=== PATIENT | female | born 1950 | race African-American/Black ===

== ENCOUNTER → 2016-11-08 | Outpatient (CLI) | payer MEDICARE, OTHER ==
[~2016-11-08] MED LIST: ATORVASTATIN CA80 MG ORAL; BACLOFEN10 MG ORAL; BENAZEPRIL HCL10 MG ORAL; CIPROFLOXACIN500 M2 ORAL; CYCLOBENZAPRINE10 MG ORAL; DEXILANT30 MG ORAL; IBUPROFEN600 MG ORAL; METFORMIN HCL850 M1 ORAL; NORCO 5-325 TA1 EACH ORAL; ROBITUSSIN COU118 M4 PO; VALIUM5 MG ORAL
--- NOTE | 2016-11-13 16:00 | GI Initial Consult Note ---
Katie Hebert N.P. 11/13/16 1600: History of Present Illness General Date patient seen: Nov 08, 2016 Time patient seen: 13:15 Referring physician: SUSAN Reason for Consultation: ABDOMINAL PAIN Present Illness HPI 66 year old female patient referred to [facility] by Dr. Doshi for evaluation of abdominal pain. Per the patient, she has been having episodes of painful swallowing and discomfort in the pit of her stomach. In addition, she c/o of abdominal bloating and black stools. Denies any use of pepto bismo or iron supplementation. States her last colonoscopy was approximately 2 years ago with colonic polyps. PCP Yoon Sherwood #[id number] Home Meds Active Scripts Guaifenesin/Dextromethorphan (Robitussin Cough-Chest Dm Liq) 118 Ml Liquid, 10 ML PO Q4HR, #118 ML Prov:TERZIAN,TOMÁS P.A. 04/08/16 Ciprofloxacin Hcl* (CIPROFLOXACIN HCL*) 500 Mg Tablet, 500 MG ORAL EVERY 12 HOURS, #20 TAB 0 Refills Prov:TERZIAN,TOMÁS P.A. 04/08/16 Ibuprofen* (MOTRIN*) 600 Mg Tablet, 600 MG ORAL Q8H Y for For Pain, #30 TAB 0 Refills Prov:DOMI PATHAK M.D. 03/06/15 Diazepam* (VALIUM*) 5 Mg Tablet, 5 MG ORAL TID Y for Muscle Spasm, #15 TAB 0 Refills Prov:DOMI PATHAK M.D. 03/06/15 Cyclobenzaprine Hcl* (FLEXERIL*) 10 Mg Tablet, 10 MG ORAL TID Y for Muscle Spasm , #20 TAB Prov:MIKA JOHNSON P.A. 07/31/14 Hydrocodone Bit/Acetaminophen 5-325* (NORCO 5-325*) 1 Each Tablet, 1 TAB ORAL Q6H Y for For Pain, #10 TAB Prov:MIKA JOHNSON P.A. 07/31/14 Reported Medications Ibuprofen* (MOTRIN*) 600 Mg Tablet, 600 MG ORAL Q8H Y, #30 TAB 0 Refills 11/13/16 Diazepam* (VALIUM*) 5 Mg Tablet, 5 MG ORAL TID Y, #30 TAB 0 Refills 11/13/16 Cyclobenzaprine Hcl* (FLEXERIL*) 10 Mg Tablet, 10 MG ORAL THREE TIMES A DAY, TAB 11/13/16 Med list reviewed/reconciled: Yes Allergies: Coded Allergies: DIPHENHYDRAMINE (Unverified Allergy, Severe, 11/13/16) JAW SWELLING Patient History History Provided By: Patient, Medical Record PMH Narrative HTN DM HLD GERD Colonic Polyps PSHx spine surgery ~ 2006 Pertinent Family History: none Social History: Reports: alcohol use - social, smoking - quit 11 years Review of Systems All Other Systems: negative except mentioned in HPI Physical Exam T 97.8 BP 118/66 P 84 97 RA HT 5 5 WT 223 Sp02 EP Interpretation: reviewed General Appearance: well appearing, no apparent distress, alert, obese EENT: normal ENT inspection Neck: supple Respiratory: normal breath sounds, no respiratory distress Cardiovascular: normal rate Gastrointestinal: normal inspection, non tender, soft Genitourinary: no CVA tenderness Musculoskeletal: back normal Neurologic: normal inspection, alert, oriented x3, responsive Psychiatric: normal inspection, judgement/insight normal, memory normal Skin: normal inspection, normal color, no rash, warm/dry Lymphatic: normal inspection, no adenopathy GI: Plan Problems: (1) Encounter for diagnostic endoscopy (2) GERD (gastroesophageal reflux disease) (3) Colonic polyp (4) Abdominal pain (5) Black stool Plan LATE ENTRY EGD scheduled for November 15, 2006. - NPO @ [place] prior day of procedure given and acknowledged rx dexilant rx baclofen Seen with Dr. Wilson. Thank you for referring this patient. BRANDIE WILSON 11/14/16 1243: History of Present Illness Present Illness Home Meds Active Scripts Guaifenesin/Dextromethorphan (Robitussin Cough-Chest Dm Liq) 118 Ml Liquid, 10 ML PO Q4HR, #118 ML Prov:TERZIAN,TOMÁS P.A. 04/08/16 Ciprofloxacin Hcl* (CIPROFLOXACIN HCL*) 500 Mg Tablet, 500 MG ORAL EVERY 12 HOURS, #20 TAB 0 Refills Prov:TERZIAN,TOMÁS P.A. 04/08/16 Ibuprofen* (MOTRIN*) 600 Mg Tablet, 600 MG ORAL Q8H Y for For Pain, #30 TAB 0 Refills Prov:DOMI PATHAK M.D. 03/06/15 Diazepam* (VALIUM*) 5 Mg Tablet, 5 MG ORAL TID Y for Muscle Spasm, #15 TAB 0 Refills Prov:DOMI PATHAK M.D. 03/06/15 Cyclobenzaprine Hcl* (FLEXERIL*) 10 Mg Tablet, 10 MG ORAL TID Y for Muscle Spasm , #20 TAB Prov:MIKA JOHNSON P.A. 07/31/14 Hydrocodone Bit/Acetaminophen 5-325* (NORCO 5-325*) 1 Each Tablet, 1 TAB ORAL Q6H Y for For Pain, #10 TAB Prov:MIKA JOHNSON P.A. 07/31/14 Reported Medications Ibuprofen* (MOTRIN*) 600 Mg Tablet, 600 MG ORAL Q8H Y, #30 TAB 0 Refills 11/13/16 Diazepam* (VALIUM*) 5 Mg Tablet, 5 MG ORAL TID Y, #30 TAB 0 Refills 11/13/16 Cyclobenzaprine Hcl* (FLEXERIL*) 10 Mg Tablet, 10 MG ORAL THREE TIMES A DAY, TAB 11/13/16 Allergies: Coded Allergies: DIPHENHYDRAMINE (Unverified Allergy, Severe, 11/13/16) JAW SWELLING GI: Plan Plan The patient was seen and examined at bedside and all new and available data was reviewed in the patients chart. I agree with the above findings, impression and plan. (Patient seen earlier today. Signature stamp does not reflect patient encounter time.). -Fernanda Bhatia MDh Edilberto Null Nov 13, 2016 16:00 BRANDIE WILSON Nov 14, 2016 12:43
== END | disposition home or self-care (01) ==
LOC: PAN 13:11
DX: K21.9 Gastro-esophageal reflux disease without esophagitis (principal); K63.5 Polyp of colon; R10.9 Unspecified abdominal pain; K92.1 Melena; E11.9 Type 2 diabetes mellitus without complications; I10 Essential (primary) hypertension; Z88.8 Allergy status to other drugs, medicaments and biological substances
CPT/HCPCS: 99201

== ENCOUNTER → 2016-11-20 | Day surgery (SDC) | payer MEDICARE, OTHER ==
[2016-11-20] VITALS (8 sets, daily range): BP systolic 103–145; BP diastolic 63–80
[~2016-11-20] VITALS: Ht 162.6 cm; Wt 97.5 kg
[~2016-11-20] MED LIST changes: +LR 1000ml 1,000 ML IVLG SCH; +LR 1000ml ONE; +Labetalol 5mg/ml 20ml vial IV PRN; +Lidocaine 1% MPF 10mg/ml 5ml ONE; +Propofol 10mg/ml 20ml IV ONE
--- NOTE | 2016-11-20 07:00 | Anethesia Preoperative Eval ---
Anesthesia Pre-op PMH/ROS General Date of Evaluation: Nov 20, 2016 Anesthesiologist: Jamarcus ASA Score: ASA 2 Mallampati Score Class I : Soft palate, uvula, fauces, pillars visible Class II: Soft palate, uvula, fauces visible Class III: Soft palate, base of uvula visible Class IV: Only hard plate visible Mallampati Classification: Class II Surgeon: Rupa Diagnosis: GERD Surgical Procedure: EGD Anesthesia History: none Family History: no anesthesia problems Allergies: Coded Allergies: DIPHENHYDRAMINE (Unverified Allergy, Severe, 11/13/16) JAW SWELLING Medications: see eMAR Past Medical History Cardiovascular: Reports: HTN, other - HLD, Denies: CAD, CT, arrhythmia, valve dz Pulmonary: Denies: COPD, MARY ANNE, asthma, other Gastrointestinal/Genitourinary: Reports: GERD, Denies: CRI, ESRD, other Neurologic/Psychiatric: Denies: CVA, TIA, dementia, depression/anxiety, other Endocrine: Reports: DM, Denies: hypothyroidism, other, steroids HEENT: Denies: [place] (L), [place] (R), cataract (L), cataract (R), glaucoma, other Hematology/Immune: Denies: DVT, anemia, bleeding disorder, other Musculoskeletal/Integumentary: Denies: DDD, DJD, OA, RA, edema, other Other: obesity PSxH Narrative: cervical sx Anesthesia Pre-op Phys. Exam Physician Exam see chart Constitutional: NAD Cardiovascular: RRR Respiratory: CTA Airway Exam Mallampati Score: Class II Anesthesia Pre-op A/P Labs see chart Studies Pre-op Studies: EKG - sr Risk Assessment & Plan Assessment: ASA II Plan: MAC Status Change Before Surgery: No Pre-Antibiotics Drug: N/A FAREED MESSER M.D. Nov 20, 2016 07:00
--- NOTE | 2016-11-20 07:01 | Immediate Post-Op Evaluation ---
Immediate Post-Op Evalulation Immediate Post-Op Evalulation Procedure: EGD Date of Evaluation: Nov 20, 2016 Time of Evaluation: 09:34 IV Fluids: 300 Blood Products: 0 Estimated Blood Loss: 0 Urinary Output: 0 Blood Pressure Systolic: 103 Blood Pressure Diastolic: 65 Pulse Rate: 71 Respiratory Rate: 17 O2 Sat by Pulse Oximetry: 100 Temperature (Fahrenheit): 96.9 Pain Score (1-10): 0 Nausea: No Vomiting: No Complications 0 Patient Status: awake, reacts, patent, none Hydration Status: adequate Drug: N/A FAREED MESSER M.D. Nov 20, 2016 07:01
--- NOTE | 2016-11-20 07:02 | 48 Hour Post Anesthesia Eval ---
Post Anesthesia Evaluation Procedure: EGD Date of Evaluation: Nov 20, 2016 Blood Pressure Systolic: 100 0: 68 Pulse Rate: 69 Respiratory Rate: 17 O2 Sat by Pulse Oximetry: 100 Airway: patent Nausea: No Vomiting: No Pain Intensity: 0 Hydration Status: adequate Cardiopulmonary Status: at baseline Mental Status/LOC: patient returned to baseline Post-Anesthesia Complications: 0 Follow-up care needed: ready to discharge FAREED MESSER M.D. Nov 20, 2016 07:02
--- NOTE | 2016-11-20 09:11 | Pre-Procedure Note/Attestation ---
Pre-Procedure Note/Attestation Complete Prior to Procedure Planned Procedure: not applicable Procedure Narrative: egd Indications for Procedure Pre-Operative Diagnosis: GERD Attestation I attest that I discussed the nature of the procedure; its benefits; risks and complications; and alternatives (and the risks and benefits of such alternatives ), prior to the procedure, with the patient (or the patient's legal enrollment eligibility representative). I attest that, if there was a reasonable possibility of needing a blood transfusion, the patient (or the patient's legal enrollment eligibility representative) was given the [facility] standardized written summary, pursuant to the Lemuel [place] Blood Safety Act ([place] Health and Safety Code # 1645, as amended). I attest that I re-evaluated the patient just prior to the surgery and that there has been no change in the patient's H&P, except as documented below: BRANDIE WILSON Nov 20, 2016 09:11
--- NOTE | 2016-11-20 09:13 | Short Stay Surgery H&P ---
History of Present Illness History of Present Illness Chief Complaint gerd HPI Francine Duenas is a 66 year old female who was admitted on for Abdominal Pain Patient History Allergies: Coded Allergies: DIPHENHYDRAMINE (Unverified Allergy, Severe, 11/13/16) JAW SWELLING PAST MEDICAL HISTORY: (1) Black stool (2) Abdominal pain (3) GERD (gastroesophageal reflux disease) (4) Colonic polyp Past Surgeries: Social History: Medication History Scheduled Atorvastatin Calcium* (Lipitor*), MG ORAL BEDTIME, (Reported) Benazepril Hcl* (Benazepril Hcl*), 10 MG ORAL DAILY, (Reported) Metformin Hcl* (Metformin Hcl*), 850 MG ORAL DAILY, (Reported) Scheduled PRN Cyclobenzaprine Hcl* (Flexeril*), 10 MG ORAL TID PRN for Muscle Spasm Diazepam* (Valium*), 5 MG ORAL TID PRN for Muscle Spasm Discontinued Medications Ciprofloxacin Hcl* (Ciprofloxacin Hcl*), 500 MG ORAL EVERY 12 HOURS Discontinued Reason: Therapy completed Guaifenesin/Dextromethorphan (Robitussin Cough-Chest Dm Liq), 10 ML PO Q4HR Discontinued Reason: Therapy completed Hydrocodone Bit/Acetaminophen 5-325* ([place] 5-325*), 1 TAB ORAL Q6H PRN for For Pain Discontinued Reason: Pt stopped taking med Ibuprofen* (Motrin*), 600 MG ORAL Q8H PRN for For Pain Discontinued Reason: Pt stopped taking med Review of Systems Cardiovascular: Reports: no symptoms Skeletal: Reports: no symptoms Gastrointestinal: Reports: gastro esophageal reflux disease Genitourinary: Reports: no symptoms Neurologic: Reports: no symptoms Endocrine: Reports: no symptoms Hematologic: Reports: no symptoms Physical Exam Vital Signs Last Vital Signs Date Time Temp Pulse Resp B/P Pulse Ox O2 Delivery O2 Flow Rate FiO2 11/20/16 07:17 97.6 72 18 145/80 96 Room Air Skin: normal HENT: normal Heart: normal Lungs: normal Abdomen: normal Extremities: normal Plan Plan of Care EGD Final Diagnosis: Attestation Are the patient's medical conditions optimized for surgery? Attestation Response: yes BRANDIE WILSON Nov 20, 2016 09:13
--- NOTE | 2016-11-20 09:25 | Endoscopy Procedure Note ---
Endoscopy Procedure Note Indication for Procedure: gerd Procedures Performed: EGD Operative Findings/Diagnosis: gastritis Specimen: yes Pt Tolerated Procedure Well: Yes Estimated Blood Loss: none Anesthesiologist: maria esther Anesthesia: MAC Implant(s) used?: No 50 yrs or older w/o bx or poly: Not Applicable 10yrs. F/U not recommended: Not Applicable BRANDIE WILSON Nov 20, 2016 09:25
--- NOTE | 2016-11-20 19:58 | Procedure Note ---
DATE OF PROCEDURE: 11/20/2016 SURGEON: Julio Goode M.D. PROCEDURE: Upper endoscopy with biopsy. ANESTHESIOLOGIST: Dr. Mcgowan. INSTRUMENT: Olympus adult flexible upper endoscope. INDICATION: Dysphagia and GERD. REASON FOR PROCEDURE: The procedure, risks, benefits, and possible consequences, including hemorrhage, aspiration, perforation and infection, and alternative treatments, were explained to the patient/legal guardian by Dr. Julio Goode and the patient/legal guardian understood and accepted these risks. DESCRIPTION OF PROCEDURE: After informed consent was obtained and the patient was adequately sedated, Olympus upper endoscope was advanced from mouth into the second portion of duodenum and retroflexion was performed in the stomach. The patient had mild gastritis. Random biopsy from antrum of the stomach was obtained to rule out H. pylori infection. Otherwise, the rest of the upper endoscopic examination was grossly within normal limits. The patient tolerated the procedure very well without any complication. SUMMARY OF FINDINGS: Gastritis, otherwise normal upper endoscopic examination. RECOMMENDATIONS: Followup biopsies and treat accordingly. Julio Goode M.D. DR: FAVIAN JOB#: [id number] CC:
--- NOTE | 2016-11-21 11:25 | Cardiology Report ---
APPROVED REPORT EKG Measurement Heart [id number] Sinus rhythm with sinus arrhythmia with frequent premature ventricular complexes Nonspecific T wave abnormality Prolonged QT Abnormal ECG
== END | disposition home or self-care (01) ==
LOC: GAS 06:44
DX: R13.10 Dysphagia, unspecified (principal); K21.9 Gastro-esophageal reflux disease without esophagitis; K29.50 Unspecified chronic gastritis without bleeding; I10 Essential (primary) hypertension; E11.9 Type 2 diabetes mellitus without complications; Z79.84 Long term (current) use of oral hypoglycemic drugs; E78.5 Hyperlipidemia, unspecified; E66.9 Obesity, unspecified; Z86.010 Personal history of colon polyps; Z88.8 Allergy status to other drugs, medicaments and biological substances
CPT/HCPCS: 43239; 82962; 93005; J2704; J7120; 94003; 94150

== ENCOUNTER → 2016-12-04 | Outpatient (CLI) | payer MEDICARE, OTHER ==
[~2016-12-04] MED LIST changes: -LR 1000ml 1,000 ML IVLG SCH; -LR 1000ml ONE; -Labetalol 5mg/ml 20ml vial IV PRN; -Lidocaine 1% MPF 10mg/ml 5ml ONE; -Propofol 10mg/ml 20ml IV ONE
--- NOTE | 2016-12-04 14:48 | GI Progress Note ---
Assessment/Plan Problems: (1) Abdominal pain ICD Codes: R10.9 - Unspecified abdominal pain SNOMED: 35264981 (2) GERD (gastroesophageal reflux disease) ICD Codes: K21.9 - Gastro-esophageal reflux disease without esophagitis SNOMED: 386381603 Status: stable Status Narrative Discussed with Dr. Goode. Assessment/Plan EGD reviewed. fu biopsy >> unremarkable cont dexilant cont baclofen hx of colonic polyps obtain colonoscopy records from Dr. Yoon Gutierrez RTC x 1 month/prn, patient will contact. Subjective Gastrointestinal/Abdominal: Reports: no symptoms Objective T 98.1 BP 157/82 P 76 100 RA General Appearance: no apparent distress, alert, obese Cardiovascular: normal rate Respiratory/Chest: normal breath sounds, no respiratory distress Abdominal Exam: normal bowel sounds, non tender, soft Extremities: normal range of motion Objective s/p EGD 11/20/16- SUMMARY OF FINDINGS: Gastritis, otherwise normal upper endoscopic examination. RECOMMENDATIONS: Followup biopsies and treat accordingly. Katie Hebert N.P. Dec 04, 2016 14:48
== END | disposition home or self-care (01) ==
LOC: PAN 13:29
DX: R10.9 Unspecified abdominal pain (principal); K21.9 Gastro-esophageal reflux disease without esophagitis; K29.70 Gastritis, unspecified, without bleeding
CPT/HCPCS: 99211

== ENCOUNTER 2017-01-15 12:50 | Outpatient (CLI) | payer MEDICARE, OTHER ==
[2017-01-15 13:00] VITALS: BP 122/68
--- NOTE | 2017-01-15 13:48 | GI Progress Note ---
Assessment/Plan Problems: (1) Colonoscopy planned SNOMED: 470216548 (2) Dysphagia ICD Codes: R13.10 - Dysphagia, unspecified SNOMED: 25776202, 973595470 (3) Post-nasal drainage ICD Codes: R09.82 - Postnasal drip SNOMED: 52102542 (4) Abdominal pain ICD Codes: R10.9 - Unspecified abdominal pain SNOMED: 30789232 (5) GERD (gastroesophageal reflux disease) ICD Codes: K21.9 - Gastro-esophageal reflux disease without esophagitis SNOMED: 835698584 (6) Colonic polyp ICD Codes: K63.5 - Polyp of colon SNOMED: 30010752 Status: unchanged Status Narrative Seen with Dr. Goode. Assessment/Plan EGD reviewed 11/20/16 >> gastritis fu biopsy >> unremarkable hx of colonic polyps >> patient will contact us to schedule colonoscopy s/p videoswallow study at [facility] in 2010 pt had stopped dexilant and baclofen rx Nasonex rx Claritin obtain colonoscopy records from Dr. Yoon Gutierrez >> had only upper endoscopy records performed in 2012 which were unremarkable >> will obtain colonoscopy records now from [facility] RT x 1 month/prn, patient will contact office. Subjective Subjective GERD, feels like she can't swallow and something is in her esophagus stopped taking dexilant and baclofen for this reason c/o of hunger and increase appetite x 1 year states she is due for a colonoscopy Objective T 98.2 BP 122/68 P 72 98 RA denies any weight loss General Appearance: no apparent distress, alert, overweight Cardiovascular: normal rate Respiratory/Chest: normal breath sounds, no respiratory distress Abdominal Exam: normal bowel sounds, non tender, soft Extremities: normal range of motion Objective Endoscopy Procedure Note Indication for Procedure: gerd Procedures Performed: EGD Operative Findings/Diagnosis: gastritis BRANDIE GOODE - Nov 20, 2016 09:25 Katie Hebert NTc January 15, 2017 13:47
== END 2017-01-15 13:40 | disposition home or self-care (01) ==
LOC: PAN 12:50
DX: K21.9 Gastro-esophageal reflux disease without esophagitis (principal); R13.10 Dysphagia, unspecified; R09.82 Postnasal drip; R10.9 Unspecified abdominal pain; K63.5 Polyp of colon
CPT/HCPCS: 99211

== ENCOUNTER 2017-01-31 08:39 | Outpatient (CLI) | payer MEDICARE, OTHER ==
--- NOTE | 2017-01-31 10:59 | Diagnostic Imaging Report ---
Indication: DYSPHAGIA Technique: Patient ingested impression granules, oral thick and thin liquid barium, and rapid sequence spot films and overhead images were obtained Total fluoroscopy time 2.2 minutes. Total dose area product 618 dGycm2 Comparison: None Findings: There is mild distal esophageal dysmotility no strictures, ulcerations, or filling defects are demonstrated. No gastroesophageal reflux observed fluoroscopically. No evidence of aspiration or penetration. Incidentally noted is cervical fusion hardware Impression: Mild distal esophageal dysmotility, likely age-related Negative for stricture or filling defect
== END 2017-01-31 10:09 | disposition home or self-care (01) ==
LOC: RAD 08:39
DX: R13.10 Dysphagia, unspecified (principal)
CPT/HCPCS: 74220

== ENCOUNTER 2017-02-28 06:58 | Day surgery (SDC) | payer MEDICARE ==
[~2017-02-28] VITALS: Ht 163.8 cm; Wt 97.5 kg
[2017-02-28] VITALS (9 sets, daily range): BP systolic 136–156; BP diastolic 71–85
--- NOTE | 2017-02-28 06:36 | Anethesia Preoperative Eval ---
Anesthesia Pre-op PMH/ROS General Date of Evaluation: Feb 28, 2017 Time of Evaluation: 06:35 Anesthesiologist: miranda ASA Score: ASA 2 Mallampati Score Class I : Soft palate, uvula, fauces, pillars visible Class II: Soft palate, uvula, fauces visible Class III: Soft palate, base of uvula visible Class IV: Only hard plate visible Mallampati Classification: Class II Surgeon: percy Diagnosis: colon screening Surgical Procedure: colonoscopy Anesthesia History: none Family History: no anesthesia problems Allergies: Coded Allergies: DIPHENHYDRAMINE (Unverified Allergy, Severe, 11/13/16) JAW SWELLING Medications: see eMAR Past Medical History Cardiovascular: Reports: HTN, other - hypercholsterolemia Gastrointestinal/Genitourinary: Reports: GERD Neurologic/Psychiatric: Reports: depression/anxiety, other - decrased hearing acuity Endocrine: Reports: DM PSxH Narrative: eye surgery Anesthesia Pre-op Phys. Exam Physician Exam Last Vital Signs Date Time Temp Pulse Resp B/P Pulse Ox O2 Delivery O2 Flow Rate FiO2 02/28/17 07:34 97.5 80 20 156/84 97 Room Air Constitutional: NAD Neurologic: CN 2-12 intact Cardiovascular: RRR Respiratory: CTA Gastrointestinal: S/NT/ND Airway Exam Mallampati Score: Class II MO: full Neck: supple TMD: 2fb ROM: full Dentures: upper, no lower Anesthesia Pre-op A/P Risk Assessment & Plan Assessment: colon screening Plan: colonoscopy Status Change Before Surgery: No Pre-Antibiotics Drug: ABDIEL Adames Feb 28, 2017 06:36
--- NOTE | 2017-02-28 09:19 | Short Stay Surgery H&P ---
History of Present Illness History of Present Illness Chief Complaint see recent consult note HPI Francine Duenas is a 66 year old female who was admitted on for Colon Screening Patient History Allergies: Coded Allergies: DIPHENHYDRAMINE (Unverified Allergy, Severe, 11/13/16) JAW SWELLING PAST MEDICAL HISTORY: Past Surgeries: Social History: Medication History Scheduled Atorvastatin Calcium* (Lipitor*), MG ORAL BEDTIME, (Reported) Benazepril Hcl* (Benazepril Hcl*), 10 MG ORAL DAILY, (Reported) Metformin Hcl* (Metformin Hcl*), 850 MG ORAL DAILY, (Reported) Scheduled PRN Cyclobenzaprine Hcl* (Flexeril*), 10 MG ORAL TID PRN for Muscle Spasm Diazepam* (Valium*), 5 MG ORAL TID PRN for Muscle Spasm Physical Exam Vital Signs Last Vital Signs Date Time Temp Pulse Resp B/P Pulse Ox O2 Delivery O2 Flow Rate FiO2 02/28/17 07:34 97.5 80 20 156/84 97 Room Air Plan Attestation Are the patient's medical conditions optimized for surgery? BRANDIE WILSON Feb 28, 2017 09:19
--- NOTE | 2017-02-28 09:19 | Pre-Procedure Note/Attestation ---
Pre-Procedure Note/Attestation Complete Prior to Procedure Planned Procedure: not applicable Procedure Narrative: colonoscopy Indications for Procedure Pre-Operative Diagnosis: screening Attestation I attest that I discussed the nature of the procedure; its benefits; risks and complications; and alternatives (and the risks and benefits of such alternatives ), prior to the procedure, with the patient (or the patient's legal manufacturers representative). I attest that, if there was a reasonable possibility of needing a blood transfusion, the patient (or the patient's legal manufacturers representative) was given the [facility] standardized written summary, pursuant to the Lemuel [place] Blood Safety Act ([place] Health and Safety Code # 1645, as amended). I attest that I re-evaluated the patient just prior to the surgery and that there has been no change in the patient's H&P, except as documented below: BRANDIE WILSON Feb 28, 2017 09:18
[2017-02-28] MEDS ORDERED: Lidocaine 1% MPF 10mg/ml 5ml ONE (09:30)
[2017-02-28] MEDS ORDERED: Propofol 10mg/ml 20ml IV ONE (09:30)
--- NOTE | 2017-02-28 09:54 | Endoscopy Procedure Note ---
Endoscopy Procedure Note Indication for Procedure: screening Procedures Performed: colonoscopy Operative Findings/Diagnosis: diverticulosis Specimen: none Pt Tolerated Procedure Well: Yes Estimated Blood Loss: none Anesthesiologist: adelina Anesthesia: MAC Implant(s) used?: No 50 yrs or older w/o bx or poly: Yes 10yrs. F/U not recommended: Yes If not recommended, why?: Above average risk 10 yrs. F/U needed: Yes 18 years or older w/prev. colo: Yes <3yrs. since last colonoscopy: No BRANDIE WILSON Feb 28, 2017 09:54
--- NOTE | 2017-02-28 14:00 | Procedure Note ---
DATE OF PROCEDURE: 02/28/2017 PROCEDURE: Colonoscopy. SURGEON: Julio Goode M.D. ANESTHESIA: Cassidy Euceda M.D. INSTRUMENT: Olympus adult flexible colonoscope. INDICATION: Screening colonoscopy evaluation. REASON FOR PROCEDURE: The procedure, risks, benefits, and possible consequences, including hemorrhage, aspiration, perforation and infection, and alternative treatments, were explained to the patient/legal guardian by Dr. Julio Goode and the patient/legal guardian understood and accepted these risks. PROCEDURE: After Informed consent was obtained and the patient was adequately sedated, a rectal examination was performed, which was normal. The scope was advanced into the rectum to the cecum identified by the appendiceal orifice, ileocecal valve and right upper quadrant palpation. Quality of prep was very good. The patient had no polyps colonoscopy examination. The patient had diverticulosis both in the right and left colon, but more predominantly seen prominent in the sigmoid colon. Retroflexion of rectum was performed, which showed no active hemorrhoids at this time. SUMMARY FINDINGS: Diverticulosis, otherwise normal colonoscopy examination. RECOMMENDATIONS: Repeat colonoscopy in 10 years. Julio Goode M.D. DR: RAE JOB#: [id number] CC:
--- NOTE | 2017-02-28 16:30 | Immediate Post-Op Evaluation ---
Immediate Post-Op Evalulation Immediate Post-Op Evalulation Procedure: colonoscopy Date of Evaluation: Feb 28, 2017 Time of Evaluation: 10:07 IV Fluids: 300ml 0.9ns Blood Products: none Estimated Blood Loss: negligible Blood Pressure Systolic: 140 Blood Pressure Diastolic: 89 Pulse Rate: 82 Respiratory Rate: 18 O2 Sat by Pulse Oximetry: 99 Temperature (Fahrenheit): 98.0 Pain Score (1-10): 0 Nausea: No Vomiting: No Complications none Patient Status: awake, reacts, patent Hydration Status: adequate Drug: ABDIEL Adames Feb 28, 2017 16:30
--- NOTE | 2017-02-28 16:32 | 48 Hour Post Anesthesia Eval ---
Post Anesthesia Evaluation Procedure: colonoscopy Date of Evaluation: Feb 28, 2017 Time of Evaluation: 16:32 Blood Pressure Systolic: 138 0: 85 Pulse Rate: 85 Respiratory Rate: 18 Temperature (Fahrenheit): 98.0 O2 Sat by Pulse Oximetry: 99 Airway: patent Nausea: No Vomiting: No Pain Intensity: 0 Hydration Status: adequate Cardiopulmonary Status: stable Mental Status/LOC: patient returned to baseline Post-Anesthesia Complications: none Follow-up care needed: N/A ABDIEL JARAMILLO Feb 28, 2017 16:32
--- NOTE | 2017-03-02 19:13 | Cardiology Report ---
APPROVED REPORT EKG Measurement Heart [id number] MT 170P71 [id number] [id number] Normal sinus rhythm Normal ECG
== END 2017-02-28 11:20 | disposition home or self-care (01) ==
LOC: GAS 06:58
DX: Z12.11 Encounter for screening for malignant neoplasm of colon (principal); K57.30 Diverticulosis of large intestine without perforation or abscess without bleeding; I10 Essential (primary) hypertension; E11.9 Type 2 diabetes mellitus without complications; Z79.84 Long term (current) use of oral hypoglycemic drugs; K21.9 Gastro-esophageal reflux disease without esophagitis; F32.9 Major depressive disorder, single episode, unspecified; F41.9 Anxiety disorder, unspecified
CPT/HCPCS: 82962; 93005; G0121; J2704; 94003; 94150

== ENCOUNTER 2017-03-13 08:48 | Outpatient (CLI) | payer MEDICARE ==
[2017-03-13 09:09] VITALS: BP 100/44
--- NOTE | 2017-03-13 09:26 | GI Progress Note ---
Assessment/Plan Problems: (1) Dysphagia ICD Codes: R13.10 - Dysphagia, unspecified SNOMED: 66251198, [id number] Status: stable, unchanged Status Narrative Seen with Dr. Goode. Assessment/Plan Esophageal Xray reviewed with patient >> unremarkable Patient education on possible Tardive dyskinesia. rx reglan 5 mg RTC x 1 month will consider esophageal manometry if no improvement Subjective Subjective here for xray review still feels liquids get "stuck" in her throat had cervical surgery 10 years ago Objective Last 24 Hour Vital Signs Date Time Temp Pulse Resp B/P Pulse Ox O2 Delivery O2 Flow Rate FiO2 03/13/17 09:09 97.7 87 16 100/44 100 General Appearance: no apparent distress, alert Cardiovascular: normal rate Respiratory/Chest: normal breath sounds, no respiratory distress Abdominal Exam: normal bowel sounds, non tender, soft Extremities: normal range of motion Objective Procedure: XRAY Esophagus 6v Indication: DYSPHAGIA Impression: Mild distal esophageal dysmotility, likely age-related Negative for stricture or filling defect Katie Hebert N.P. Mar 13, 2017 09:26
== END 2017-03-13 09:30 | disposition home or self-care (01) ==
LOC: PAN 08:48
DX: R13.10 Dysphagia, unspecified (principal)
CPT/HCPCS: 99211

== ENCOUNTER 2017-04-05 08:18 | Inpatient (IN) | payer MEDICARE, OTHER ==
[~2017-04-05] VITALS: Ht 162.6 cm; Wt 97.5 kg
[2017-04-05 09:17] VITALS: BP 149/72
[2017-04-05 09:23] LABS: APPEARANCE,URINE CLEAR; KETONES,URINE NEGATIVE (NEGATIVE); LEUKOCYTE ESTERASE ,URINE 1+ (NEGATIVE); NITRITE,URINE NEGATIVE (NEGATIVE); PH,URINE 6 (4.5-8.0); PROTEIN,URINE NEGATIVE (NEGATIVE); UROBILINOGEN,URINE NORMAL MG/DL (0.0-1.0)
[2017-04-05 09:26] LABS: BASOPHILS % (AUTO) 7.5 % (0.0-2.0); EOSINOPHILS % (AUTO) 1.9 % (0.0-3.0); LYMPHOCYTES % (AUTO) 30.4 % (20.0-45.0); MEAN CORPUSCULAR HEMOGLOBIN 28.1 PG (27.0-31.0); MEAN CORPUSCULAR HGB CONC 30.3 G/DL (32.0-36.0); MEAN CORPUSCULAR VOLUME 93 FL (80-99); MEAN PLATELET VOLUME 10.4 FL (6.5-10.1); MONOCYTES % (AUTO) 18.2 % (1.0-10.0); PLATELET COUNT 220 K/UL (150-450); RED BLOOD COUNT 4.43 M/UL (4.20-5.40); RED CELL DISTRIBUTION WIDTH 13.4 % (11.6-14.8); WHITE BLOOD COUNT 7.1 K/UL (4.8-10.8)
[2017-04-05 09:37] LABS: BACTERIA,URINE FEW /HPF; RBC,URINE 0-2 /HPF (0 - 2); SQUAMOUS EPITHELIAL CELL,UR FEW /LPF (NONE/OCC); WBC,URINE 0-2 /HPF (0 - 2)
[2017-04-05 09:38] LABS: ALANINE AMINOTRANSFERASE 12 U/L (3-33); ALBUMIN/GLOBULIN RATIO 0.9 (1.0-2.7); ANION GAP 13 (5-15); ASPARTATE AMINO TRANSFERASE 19 U/L (5-40); CALCIUM 9.3 mg/dL (8.6-10.2); CARBON DIOXIDE 24 mEQ/L (20-30); CHLORIDE 97 mEQ/L (98-107); CREATININE 0.8 mg/dL (0.5-0.9); GLOMERULAR FILTRATION RATE > 60 mL/min (>60); HEMOLYSIS 54; LIPASE 28 U/L (< 60); POTASSIUM 4.6 mEQ/L (3.4-4.9); SODIUM 134 mEQ/L (135-145); TOTAL PROTEIN 7.5 g/dL (6.6-8.7); TROPONIN I < 0.30 ng/mL (<=0.30)
[2017-04-05 09:49] LABS: CKMB < 1.5 ng/mL (< 3.8)
--- NOTE | 2017-04-05 09:54 | Diagnostic Imaging Report ---
Indication: Dyspnea Comparison: 09/28 13 A single view chest radiograph was obtained. Findings: Cardiomediastinal appearance is within normal limits for age. Pulmonary vascularity is appropriate. The diaphragmatic contour is smooth and costophrenic angles are sharp. No pleural effusions are identified. The bones are unremarkable. Cervical compression plate noted. Impression: No acute findings
--- NOTE | 2017-04-05 10:19 | Emergency Room Report ---
History of Present Illness General Chief Complaint: Pain Source: Patient Present Illness HPI 66-year-old female presents ED for evaluation per states for one day she's had chest tightness. Started rest. Midsternal. 2/10. Worse with deep breaths. Notes history of acid reflux but states this feels different. Notes history of hypertension and diabetes. Denies smoking or drug use. No other aggravating or relieving factors. Denies any other associated symptoms Allergies: Coded Allergies: DIPHENHYDRAMINE (Unverified Allergy, Severe, 11/13/16) JAW SWELLING Patient History Past Medical History: DM, HTN Past Surgical History: none Pertinent Family History: none Social History: Denies: alcohol use, drug use, smoking Now: No Immunizations: UTD Reviewed Nursing Documentation: PMH: Agreed, PSxH: Agreed Nursing Documentation-PMH Hx Cardiac Problems: Yes Hx Hypertension: Yes Hx Diabetes: Yes - type 2 Hx Cancer: No Hx Gastrointestinal Problems: Yes Hx Neurological Problems: No Review of Systems All Other Systems: negative except mentioned in HPI Physical Exam Vital Signs Date Time Temp Pulse Resp B/P Pulse Ox O2 Delivery O2 Flow Rate FiO2 04/05/17 08:29 98.2 82 18 143/82 99 Room Air Sp02 EP Interpretation: reviewed, normal General Appearance: no apparent distress, alert, GCS 15, non-toxic Head: normocephalic Eyes: bilateral eye PERRL, bilateral eye normal inspection ENT: hearing grossly normal, normal pharynx, no angioedema, normal voice Neck: full range of motion, supple/symm/no masses Respiratory: chest non-tender, lungs clear, normal breath sounds, speaking full sentences Cardiovascular #1: regular rate, rhythm, no edema Cardiovascular #2: 2+ carotid (R), 2+ carotid (L), 2+ radial (R), 2+ radial (L) , 2+ dorsalis pedis (R), 2+ dorsalis pedis (L) Gastrointestinal: normal bowel sounds, non tender, soft, non-distended, no guarding, no rebound Rectal: deferred Genitourinary: normal inspection, no CVA tenderness Musculoskeletal: back normal, gait/station normal, normal range of motion, non- tender Neurologic: alert, oriented x3, responsive, motor strength/tone normal, sensory intact, speech normal Psychiatric: judgement/insight normal, memory normal, mood/affect normal, no suicidal/homicidal ideation Reflexes: 3+ bicep (R), 3+ bicep (L), 3+ tricep (R), 3+ tricep (L), 3+ knee (R) , 3+ knee (L) Skin: normal color, no rash, warm/dry, well hydrated Lymphatic: no adenopathy Medical Decision Making Diagnostic Impression: Primary Impression: ACS (acute coronary syndrome) ER Course Hospital Course 66-year-old female presents ED complaining of chest tightness Differential diagnoses include: IN/unstable angina, contusion, muscle strain, PTX, rib fracture Clinical course Patient placed on stretcher. on television reporter. After initial history and physical I ordered labs, EKG, chest x-ray labs reviewed- no leukocytosis, hb/hct stable, electrolytes ok, trop negative EKG - NSR, no acute changes interpreted by me Chest x-ray- no acute process Case discussed with Dr. Boudreaux and he agreed to accept the patient to his service for further care and support I. I feel this is a highly complex case requiring extensive working including EKG/Rhythm strip, Xray/CT/US, Blood/urine lab work, repeat exams while in ED, and administration of strong opiates/narcotics for pain control, admission to hospital or close patient follow up. Diagnosis - ACS admitted to telemetry in serious condition Labs Test 04/05/17 09:00 White Blood Count 7.1 K/UL (4.8-10.8) Red Blood Count 4.43 M/UL (4.20-5.40) Hemoglobin 12.4 G/DL (12.0-16.0) Hematocrit 41.0 % (37.0-47.0) Mean Corpuscular Volume 93 FL (80-99) Mean Corpuscular Hemoglobin 28.1 PG (27.0-31.0) Mean Corpuscular Hemoglobin Concent 30.3 G/DL (32.0-36.0) Red Cell Distribution Width 13.4 % (11.6-14.8) Platelet Count 220 K/UL (150-450) Mean Platelet Volume 10.4 FL (6.5-10.1) Neutrophils (%) (Auto) 42.0 % (45.0-75.0) Lymphocytes (%) (Auto) 30.4 % (20.0-45.0) Monocytes (%) (Auto) 18.2 % (1.0-10.0) Eosinophils (%) (Auto) 1.9 % (0.0-3.0) Basophils (%) (Auto) 7.5 % (0.0-2.0) Urine Color Pale yellow Urine Appearance Clear Urine pH 6 (4.5-8.0) Urine Specific [place] 1.015 (1.005-1.035) Urine Protein Negative (NEGATIVE) Urine Glucose (UA) Negative (NEGATIVE) Urine Ketones Negative (NEGATIVE) Urine Occult Blood Negative (NEGATIVE) Urine Nitrite Negative (NEGATIVE) Urine Bilirubin Negative (NEGATIVE) Urine Urobilinogen Normal MG/DL (0.0-1.0) Urine Leukocyte Esterase 1+ (NEGATIVE) Urine RBC 0-2 /HPF (0 - 2) Urine WBC 0-2 /HPF (0 - 2) Urine Squamous Epithelial Cells Few /LPF (NONE/OCC) Urine Bacteria Few /HPF (NONE) Sodium Level 134 mEQ/L (135-145) Potassium Level 4.6 mEQ/L (3.4-4.9) Chloride Level 97 mEQ/L (98-107) Carbon Dioxide Level 24 mEQ/L (20-30) Anion Gap 13 (5-15) Blood Urea Nitrogen 13 mg/dL (7-23) Creatinine 0.8 mg/dL (0.5-0.9) Estimat Glomerular Filtration Rate > 60 mL/min (>60) Glucose Level 158 mg/dL (74-106) Calcium Level 9.3 mg/dL (8.6-10.2) Total Bilirubin 0.4 mg/dL (0.0-1.2) Aspartate Amino Transf (AST/SGOT) 19 U/L (5-40) Alanine Aminotransferase (ALT/SGPT) 12 U/L (3-33) Alkaline Phosphatase 111 U/L (35-104) Total Creatine Kinase 65 U/L (26-140) Creatine Kinase MB < 1.5 ng/mL (< 3.8) Creatine Kinase MB Relative Index Troponin I < 0.30 ng/mL (<=0.30) Total Protein 7.5 g/dL (6.6-8.7) Albumin 3.6 g/dL (3.5-5.2) Globulin 3.9 g/dL Albumin/Globulin Ratio 0.9 (1.0-2.7) Lipase 28 U/L (< 60) EKG Diagnostic Results Rate: normal Rhythm: NSR ST Segments: no acute changes ASA given to the pt in ED: No - took at home Rhythm Strip Diag. Results EP Interpretation: yes Rhythm: NSR, no PVC's, no ectopy Chest X-Ray Diagnostic Results Chest X-Ray Diagnostic Results : Chest X-Ray Ordered: Yes # of Views/Limited/Complete: 1 View Indication: Chest Pain EP Interpretation: Yes Interpretation: no consolidation, no effusion, no pneumothorax, no acute cardiopulmonary disease Impression: No acute disease Interpreting ER Provider: Electronically signed by Phani Tejada MD Last Vital Signs Date Time Temp Pulse Resp B/P Pulse Ox O2 Delivery O2 Flow Rate FiO2 04/05/17 09:17 74 14 149/72 100 Room Air 04/05/17 08:29 98.2 Status: improved Disposition: ADMITTED INPATIENT Condition: Serious Referrals: NAMITA LANDRY (PCP) PHANI TEJADA M.D. Apr 05, 2017 10:19
[2017-04-05] MEDS ORDERED: Morphine Sulfate 4mg/ml Inj IVP PRN (10:45)
[2017-04-05] MEDS ORDERED: Nitroglycerin Subl 0.4mg tab (Bottle Of 25) SL PRN (11:15)
[2017-04-05] MEDS ORDERED: Cyclobenzaprine 10mg Tab ORAL PRN (11:15)
[2017-04-05] MEDS: NovoLOG Insulin Flexpen SUBQ SCH ×3 (13:00→20:44)
[2017-04-05 13:08] VITALS: BP 156/77
--- NOTE | 2017-04-05 13:24 | Cardiology Progress Note ---
Assessment/Plan Assessment/Plan The patient is seen and examined, full consult note will be dictated shortly. Objective Last 24 Hour Vital Signs Date Time Temp Pulse Resp B/P Pulse Ox O2 Delivery O2 Flow Rate FiO2 04/05/17 13:08 97.0 77 18 156/77 98 Room Air 04/05/17 11:11 70 22 129/76 99 Room Air 04/05/17 09:17 74 14 149/72 100 Room Air 04/05/17 08:39 74 14 Room Air 04/05/17 08:29 98.2 82 18 143/82 99 Room Air Laboratory Tests Test 04/05/17 09:00 White Blood Count 7.1 K/UL (4.8-10.8) Red Blood Count 4.43 M/UL (4.20-5.40) Hemoglobin 12.4 G/DL (12.0-16.0) Hematocrit 41.0 % (37.0-47.0) Mean Corpuscular Volume 93 FL (80-99) Mean Corpuscular Hemoglobin 28.1 PG (27.0-31.0) Mean Corpuscular Hemoglobin Concent 30.3 G/DL (32.0-36.0) L Red Cell Distribution Width 13.4 % (11.6-14.8) Platelet Count 220 K/UL (150-450) Mean Platelet Volume 10.4 FL (6.5-10.1) H Neutrophils (%) (Auto) 42.0 % (45.0-75.0) L Lymphocytes (%) (Auto) 30.4 % (20.0-45.0) Monocytes (%) (Auto) 18.2 % (1.0-10.0) H Eosinophils (%) (Auto) 1.9 % (0.0-3.0) Basophils (%) (Auto) 7.5 % (0.0-2.0) H Urine Color Pale yellow Urine Appearance Clear Urine pH 6 (4.5-8.0) Urine Specific [place] 1.015 (1.005-1.035) Urine Protein Negative (NEGATIVE) Urine Glucose (UA) Negative (NEGATIVE) Urine Ketones Negative (NEGATIVE) Urine Occult Blood Negative (NEGATIVE) Urine Nitrite Negative (NEGATIVE) Urine Bilirubin Negative (NEGATIVE) Urine Urobilinogen Normal MG/DL (0.0-1.0) Urine Leukocyte Esterase 1+ (NEGATIVE) H Urine RBC 0-2 /HPF (0 - 2) Urine WBC 0-2 /HPF (0 - 2) Urine Squamous Epithelial Cells Few /LPF (NONE/OCC) Urine Bacteria Few /HPF (NONE) Sodium Level 134 mEQ/L (135-145) L Potassium Level 4.6 mEQ/L (3.4-4.9) Chloride Level 97 mEQ/L (98-107) L Carbon Dioxide Level 24 mEQ/L (20-30) Anion Gap 13 (5-15) Blood Urea Nitrogen 13 mg/dL (7-23) Creatinine 0.8 mg/dL (0.5-0.9) Estimat Glomerular Filtration Rate > 60 mL/min (>60) Glucose Level 158 mg/dL (74-106) H Calcium Level 9.3 mg/dL (8.6-10.2) Total Bilirubin 0.4 mg/dL (0.0-1.2) Aspartate Amino Transf (AST/SGOT) 19 U/L (5-40) Alanine Aminotransferase (ALT/SGPT) 12 U/L (3-33) Alkaline Phosphatase 111 U/L (35-104) H Total Creatine Kinase 65 U/L (26-140) Creatine Kinase MB < 1.5 ng/mL (< 3.8) Creatine Kinase MB Relative Index Troponin I < 0.30 ng/mL (<=0.30) Total Protein 7.5 g/dL (6.6-8.7) Albumin 3.6 g/dL (3.5-5.2) Globulin 3.9 g/dL Albumin/Globulin Ratio 0.9 (1.0-2.7) L Lipase 28 U/L (< 60) SADI GORDON Apr 05, 2017 13:24
--- NOTE | 2017-04-05 14:15 | History and Physical Report ---
DATE OF ADMISSION: 04/05/2017 CHIEF COMPLAINT: Chest pain. HISTORY OF PRESENT ILLNESS: The patient is a 66-year-old female. She has a history of hypertension and diabetes, presented from home with complaints of chest pain and pressure. According to the patient, she was well until several days prior to admission. She notes the onset of pressure-like discomfort in her chest radiating to her back. She denies any fever or chills. She has had no cough. She does note some worsening indigestion symptoms. Symptoms otherwise have been intermittent, but are worse when climbing up stairs. The patient states that she has had "heart test" in the past and was told that they were normal. She had a stress test years ago that was also normal. On evaluation in the emergency room, the patient's enzymes were unremarkable. EKG showed only PVCs and the patient does have multiple cardiac risk factors, therefore, admitted for further evaluation and care. PAST MEDICAL HISTORY: As above. PAST SURGICAL HISTORY: Neck surgery. CURRENT MEDICATIONS: Reconciled and reviewed. ALLERGIES: Benadryl. FAMILY HISTORY: Positive family history of heart disease. SOCIAL HISTORY: There is no known history of tobacco, ethanol, or drugs. REVIEW OF SYSTEMS: General: No fever or chills. HEENT: No headaches or visual changes. Cardiopulmonary: Positive chest pain. Positive dyspnea on exertion. Gastrointestinal: Positive acid reflux. Genitourinary: No urgency or frequency. Musculoskeletal: No joint pain or swelling. Neurologic: No evidence of seizures. PHYSICAL EXAMINATION: VITAL SIGNS: Temperature 98.2, pulse 82, respirations 18, and blood pressure 143/82. GENERAL: The patient is a well-developed female, in no apparent distress. She is awake and alert. HEENT: Pupils are equal, round, and reactive to light. . NECK: Supple. There is no jugular venous distention. HEART: Regular rate and rhythm. LUNGS: Clear. ABDOMEN: Soft, nontender, and nondistended. EXTREMITIES: Without clubbing, cyanosis, or edema. DIAGNOSTIC AND LABORATORY DATA: EKG shows sinus rhythm with PVCs. Sodium 134, potassium 4.6, and creatinine was 0.8. Troponin was negative. UA was clear. ASSESSMENT: This is a pleasant female with complaints of atypical chest pain. She does have multiple cardiac risk factors, but symptoms appeared to be atypical at best. PLAN: Serial enzymes. PRN nitrates. Titrate blood pressure regimen. Check an echo. Repeat troponin in the morning. Cardiology consultation. Sukhjinder Boudreaux M.D. DR: LUCIANO JOB#: [id number] CC:
[2017-04-05 15:59] VITALS: BP 156/83
[2017-04-05 20:00] VITALS: BP 144/71
[2017-04-05] MEDS: Triamterene/Hctz 37.5/25 cap ORAL SCH (20:34)
[2017-04-05] MEDS: Heparin 5000 units/ml inj SUBQ SCH (20:44)
[2017-04-06] VITALS: BP 137/68
[2017-04-06 04:04] VITALS: BP 122/76
--- NOTE | 2017-04-06 04:30 | Consultation ---
DATE OF CONSULTATION: 04/05/2017 CARDIOLOGY CONSULTATION CONSULTING PHYSICIAN: Wilfred Gurrola M.D. REFERRING PHYSICIAN: Sukhjinder Boudreaux M.D. REASON FOR CONSULTATION: Management of chest pain. HISTORY OF PRESENT ILLNESS: The patient is a very pleasant 66-year-old female, who presents to the emergency department for evaluation of chest tightness. She describes the chest tightness as pressure-like in the upper midsternal. Initial intensity of the pain was 2/10, worse with deep inspiration. Denies any leg pain. She states that the pain is nonexertional and lasted just about 20 minutes. She states that this pain is different from her usual acid reflux, which is mostly burning in quality. She was a little bit concerned as the pain was recurrent and persistent and decided to come to the hospital for further evaluation and management. Her risk factors for coronary artery disease include hypertension and diabetes mellitus. There is no change in exercise tolerance in the past couple of weeks. PAST MEDICAL HISTORY: Hypertension, diabetes mellitus, dyslipidemia, and also of gastroesophageal reflux disease. MEDICATION: Atorvastatin one tablet p.o. nightly, the dose of which is unknown, benazepril 10 mg p.o. daily, Flexeril 10 mg p.o. three times daily p.r.n. muscle spasm, Valium 5 mg p.o. t.i.d. p.r.n. muscle spasm, and metformin 850 mg p.o. daily. PAST SURGICAL HISTORY: None. SOCIAL HISTORY: Denies any history of tobacco, alcohol, or illicit drug use. FAMILY HISTORY: No premature coronary artery disease in first-degree relatives. REVIEW OF SYSTEMS: HEENT: Denies any headache, diplopia, or blurred vision. Constitutional: Denies any fever, chills, night sweats, or weight loss. Cardiovascular: Chest pain as mentioned above. Denies any PND, orthopnea, leg swelling, palpitation, or syncope. Pulmonary: Denies any cough, hemoptysis, or wheezing. Gastrointestinal: Denies any nausea, vomiting, diarrhea, constipation, abdominal pain, or GI bleed. Genitourinary: Denies any hematuria, dysuria, or incontinence. Neurologic: Denies any motor dysfunction, sensory deficit, or altered speech. ALLERGIES: To diphenhydramine. PHYSICAL EXAMINATION: VITAL SIGNS: Blood pressure was 143/82, respirations of 18, pulse of 82, temperature 98.2 degrees Fahrenheit, and O2 saturation 99% on room air. GENERAL: The patient is a very pleasant 66-year-old female in no apparent respiratory distress. Alert and oriented x4. HEENT: Atraumatic and normocephalic. Anicteric. Pupils are equal, round, and reactive to light and accommodation. Extraocular muscles intact. NECK: JVP less than 5 cm. No carotid bruit. Carotid upstroke is 2+ bilaterally. CARDIOVASCULAR: Normal S1 and S2. Regular rate and rhythm. No murmurs, gallops, or rubs. PMI is at fourth intercostal space at the midclavicular line. LUNGS: Clear to auscultation bilaterally. ABDOMEN: Soft, nontender, and nondistended. No hepatosplenomegaly. Positive bowel sounds. EXTREMITIES: No evidence of edema, clubbing, or cyanosis. LABORATORY AND DIAGNOSTIC FINDINGS: Chest x-ray showed no acute cardiopulmonary disease. Laboratory findings showed WBC 7.1, hemoglobin 12.4, hematocrit 40.10, and platelet count is 220,000. Sodium is 134, potassium is 4.6, chloride 97, carbon dioxide 24, BUN 13, creatinine 0.8, glucose 158, and calcium 9.3. CK-MB is less than 1.5. Troponin I is less than 0.3. A 12-lead electrocardiogram showed sinus rhythm at a rate of 80 with a single premature atrial complex. No ST and T-wave abnormalities. ASSESSMENT AND PLAN: The patient is a very unfortunate 66-year-old female, seen in Cardiology consultation at the request of Dr. Boudreaux. 1. Atypical chest pain, character of pain is not quite consistent with ischemic heart disease, however, she is considered to be intermediate risk for coronary artery disease based on her history of diabetes mellitus, hypertension, dyslipidemia, and her age. We would like to proceed with nuclear perfusion imaging study which will be scheduled for tomorrow noon. In the meantime, the patient will be on aspirin and continued on blood pressure control with benazepril and statin. The dose of statin would be of moderate intensity at 40 mg p.o. nightly, which will be changed. Further, a 2D echocardiogram will be also done for assessment of left ventricular systolic and diastolic function. Further therapeutic and diagnostic decision will be based on the results of the above studies. 2. History of diabetes mellitus, [facility] the [facility], the patient will benefit from combination of aspirin and statins. 3. History of hypertension. I would agree with benazepril. The latest blood pressure has been 156/83 mmHg. I would consider adding a small dose of diuretics to the KARLI inhibitors. The patient's creatinine is 0.8. 4. Dyslipidemia. Lipid panel will be ordered in the morning. 5. History of gastroesophageal reflux disease. I would like to thank, Dr. Boudreaux, for allowing me to participate in the care of this most pleasant patient. Wilfred Gurrola M.D. DR: Morgan JOB#: [id number] CC:
[2017-04-06] MEDS: NovoLOG Insulin Flexpen SUBQ SCH ×3 (06:30→16:30)
[2017-04-06 07:00] LABS: TROPONIN I < 0.30 ng/mL (<=0.30)
[2017-04-06 07:05] LABS: CHOLESTEROL/HDL RATIO 3.5 (3.3-4.4)
[2017-04-06 07:45] VITALS: BP 139/81
[2017-04-06] MEDS ORDERED: Benazepril 10mg tab ORAL SCH (09:00)
[2017-04-06] MEDS: Heparin 5000 units/ml inj SUBQ SCH (09:00)
[2017-04-06] MEDS ORDERED: Aspirin Baby 81mg NG SCH (09:00)
--- NOTE | 2017-04-06 09:01 | General Progress Note ---
Assessment/Plan Problem List: (1) chest pain (2) GERD (gastroesophageal reflux disease) ICD Codes: K21.9 - Gastro-esophageal reflux disease without esophagitis SNOMED: [id number] Status: stable, progressing Assessment/Plan stress test dc if stress test ok Subjective ROS Limited/Unobtainable: No Constitutional: Reports: no symptoms HEENT: Reports: no symptoms Cardiovascular: Reports: chest pain Respiratory: Reports: no symptoms Gastrointestinal/Abdominal: Reports: no symptoms Genitourinary: Reports: no symptoms Neurologic/Psychiatric: Reports: no symptoms Endocrine: Reports: no symptoms Hematologic/Lymphatic: Reports: no symptoms Allergies: Coded Allergies: DIPHENHYDRAMINE (Unverified Allergy, Severe, 11/13/16) JAW SWELLING All Systems: reviewed and negative except above Subjective no chest pain cards apprecaited. Objective Last 24 Hour Vital Signs Date Time Temp Pulse Resp B/P Pulse Ox O2 Delivery O2 Flow Rate FiO2 04/06/17 07:45 97.3 82 18 139/81 97 Room Air 04/06/17 04:11 77 04/06/17 04:04 97.2 80 20 122/76 99 Room Air 04/06/17 00:00 97.7 73 20 137/68 99 Room Air 04/06/17 00:00 75 04/05/17 20:00 97.5 56 18 144/71 95 Room Air 04/05/17 19:25 83 04/05/17 16:00 81 04/05/17 15:59 97.2 78 18 156/83 97 Room Air 04/05/17 13:08 97.0 77 18 156/77 98 Room Air 04/05/17 11:11 70 22 129/76 99 Room Air 04/05/17 09:17 74 14 149/72 100 Room Air Intake and Output 04/05/17 04/06/17 19:00 07:00 Intake Total 740 ml Balance 740 ml Intake Oral 240 ml IV Total 500 ml # Voids 3 Laboratory Tests 04/05/17 09:00: White Blood Count 7.1, Red Blood Count 4.43, Hemoglobin 12.4, Hematocrit 41.0, Mean Corpuscular Volume 93, Mean Corpuscular Hemoglobin 28.1, Mean Corpuscular Hemoglobin Concent 30.3L, Red Cell Distribution Width 13.4, Platelet Count 220, Mean Platelet Volume 10.4H, Neutrophils (%) (Auto) 42.0L, Lymphocytes (%) (Auto ) 30.4, Monocytes (%) (Auto) 18.2H, Eosinophils (%) (Auto) 1.9, Basophils (%) ( Auto) 7.5H, Urine Color Pale yellow, Urine Appearance Clear, Urine pH 6, Urine Specific [place] 1.015, Urine Protein Negative, Urine Glucose (UA) Negative, Urine Ketones Negative, Urine Occult Blood Negative, Urine Nitrite Negative, Urine Bilirubin Negative, Urine Urobilinogen Normal, Urine Leukocyte Esterase 1+ H, Urine RBC 0-2, Urine WBC 0-2, Urine Squamous Epithelial Cells Few, Urine Bacteria Few, Sodium Level 134L, Potassium Level 4.6, Chloride Level 97L, Carbon Dioxide Level 24, Anion Gap 13, Blood Urea Nitrogen 13, Creatinine 0.8, Estimat Glomerular Filtration Rate > 60, Glucose Level 158H, Calcium Level 9.3, Total Bilirubin 0.4, Aspartate Amino Transf (AST/SGOT) 19, Alanine Aminotransferase (ALT/SGPT) 12, Alkaline Phosphatase 111H, Total Creatine Kinase 65, Creatine Kinase MB < 1.5, Creatine Kinase MB Relative Index , Troponin I < 0.30, Total Protein 7.5, Albumin 3.6, Globulin 3.9, Albumin/ Globulin Ratio 0.9L, Lipase 28 04/06/17 05:20: Troponin I < 0.30, Triglycerides Level 116, Cholesterol Level 178, LDL Cholesterol 104H, HDL Cholesterol 51, Cholesterol/HDL Ratio 3.5 Height (Feet): 5 Height (Inches): 4.00 Weight (Pounds): 215 General Appearance: WD/WN, alert Neck: supple Cardiovascular: normal rate, regular rhythm Respiratory/Chest: chest wall non-tender, lungs clear, normal breath sounds Abdomen: normal bowel sounds, non tender, soft Edema: no edema noted Arm (L), no edema noted Arm (R), no edema noted Leg (L), no edema noted Leg (R), no edema noted Pedal (L), no edema noted Pedal (R), no edema noted Generalized Neurologic: remote inpatient coder II-XII grossly normal, no motor/sensory deficits, alert, oriented x 3, responsive WESLY LOPEZ Apr 06, 2017 09:01
[2017-04-06 11:36] VITALS: BP 124/73
[2017-04-06] MEDS ORDERED: Adenosine Inj IVP ONE (12:15)
[2017-04-06] MEDS: Triamterene/Hctz 37.5/25 cap ORAL SCH (13:05)
[2017-04-06 15:32] VITALS: BP 112/61
--- NOTE | 2017-04-06 16:17 | Diagnostic Imaging Report ---
Indications: Chest pain Technique: Single day single isotope protocol utilized. Initially, resting images obtained using IV administration 10 millicuries 99M technetium Myoview. Subsequently, patient underwent adenosine stress testing. See cardiology report for details. During adenosine infusion, IV administration 33 mCi 99 M technetium Myoview. SPECT and planar images obtained. SPECT images gated to 8 phases of the cardiac cycle were also obtained, and reformatted into cine images for evaluation of ejection fraction. Comparison: None Findings: Per cardiology report, patient experienced flushing and pressure. Per cardiology report, resting EKG demonstrates normal sinus rhythm. No ST-T wave changes reported during infusion. Imaging demonstrates no definite fixed nor reversible post stress perfusion defects. There is slight apparent thinning of the myocardial wall to the apex, suspect that this is artifactual due to overlying soft tissue attenuation. Calculated post stress ejection fraction 63%. No focal wall motion abnormality demonstrated Impression: Nonischemic clinical response to pharmacologic stress, per cardiology report Nonischemic electrocardiographic response to pharmacologic stress, per cardiology report No imaging findings to suggest ischemia, at level of stress achieved. Calculated post stress ejection fraction 63%
--- NOTE | 2017-04-06 23:41 | Cardiology Progress Note ---
Assessment/Plan Assessment/Plan 1. Non-cardiac chest pain, nuclear stress test showed no evidence of myocardial ischemia with LVEF at 63%. 2. History of diabetes mellitus, consider aspirin and statins. 3. Hypertension, well controlled, continue Maxzide and Benazepril. 4. Hypercholesterolemia, LDL goal is at 70mg% in view of DM. Medium potency statins is recommended. 5. History of gastroesophageal reflux disease. Subjective Subjective Sinus rhythm at 85. s/p nuclear stress test today. Objective Last 24 Hour Vital Signs Date Time Temp Pulse Resp B/P Pulse Ox O2 Delivery O2 Flow Rate FiO2 04/06/17 16:00 79 04/06/17 15:32 97.9 91 18 112/61 98 Room Air 04/06/17 13:04 124/73 04/06/17 12:00 72 04/06/17 11:36 97.1 74 18 124/73 98 Room Air 04/06/17 08:00 83 04/06/17 07:45 97.3 82 18 139/81 97 Room Air 04/06/17 04:11 77 04/06/17 04:04 97.2 80 20 122/76 99 Room Air 04/06/17 00:00 97.7 73 20 137/68 99 Room Air 04/06/17 00:00 75 Intake and Output 04/05/17 04/06/17 19:00 07:00 Intake Total 740 ml Balance 740 ml Intake Oral 240 ml IV Total 500 ml # Voids 3 2D Echo: LVEF 55%,Mild LVH,Mild-Mod MR,Grade II LVDD (pseudo-normal physio), RVSP 36 Laboratory Tests Test 04/06/17 05:20 Troponin I < 0.30 ng/mL (<=0.30) Triglycerides Level 116 mg/dL (< 150) Cholesterol Level 178 mg/dL (< 200) LDL Cholesterol 104 mg/dL (60-99) H HDL Cholesterol 51 mg/dL (> 60) Cholesterol/HDL Ratio 3.5 (3.3-4.4) Objective HEENT: Atraumatic and normocephalic. Anicteric. Pupils are equal, round, and reactive to light and accommodation. Extraocular muscles intact. NECK: JVP less than 5 cm. No carotid bruit. Carotid upstroke is 2+ bilaterally. CARDIOVASCULAR: Normal S1 and S2. Regular rate and rhythm. No murmurs, gallops, or rubs. PMI is at fourth intercostal space at the midclavicular line. LUNGS: Clear to auscultation bilaterally. ABDOMEN: Soft, nontender, and nondistended. No hepatosplenomegaly. Positive bowel sounds. EXTREMITIES: No evidence of edema, clubbing, or cyanosis. SADI GORDON Apr 06, 2017 23:41
--- NOTE | 2017-04-08 16:26 | Cardiology Report ---
APPROVED REPORT EKG Measurement Heart [id number] Sinus rhythm with occasional premature ventricular complexes Otherwise normal ECG
--- NOTE | 2017-04-09 11:11 | Discharge Summary ---
Discharge Summary Hospital Course Date of Admission Apr 05, 2017 at 09:21 Date of Discharge Apr 06, 2017 at 17:45 Admitting Diagnosis ACUTE CORONARY SYNDROME CHRISTOPHER Duenas is a 66 year old female who was admitted on Apr 05, 2017 at 09:21 for Acute Coronary Syndrome Hospital Course dc summary #[id number] Discharge Medications Continued Medications: Atorvastatin Calcium* (Lipitor*) 80 Mg Tablet MG ORAL BEDTIME, TAB Benazepril Hcl* (Benazepril Hcl*) 10 Mg Tablet 10 MG ORAL DAILY, TAB Cyclobenzaprine Hcl* (Flexeril*) 10 Mg Tablet 10 MG ORAL TID PRN for Muscle Spasm, #20 TAB Diazepam* (Valium*) 5 Mg Tablet 5 MG ORAL TID PRN for Muscle Spasm, #15 TAB 0 Refills Metformin Hcl* (Metformin Hcl*) 850 Mg Tablet 850 MG ORAL DAILY, TAB Discharge Condition Upon Discharge: stable Discharge Disposition Patient was discharged to Home (01) Discharge Diagnoses: Discharge Instructions Discharge Instructions Special Instructions I have been assigned to complete a D/C Summary on this account. I was not involved in the patient management Effie Flowers NP ([facility]anchtein) Apr 09, 2017 11:11
--- NOTE | 2017-04-09 19:19 | Cardiology Report ---
APPROVED REPORT EXAM: Three-dimensional, Two-dimensional and M-mode echocardiogram with Doppler and color Doppler. INDICATION Chest Pain M-Mode DIMENSIONS IVSd1.1 (0.7-1.1cm)Left Atrium (MM)2.6 (1.6-4.0cm) LVDd4.4 (3.5-5.6cm)Aortic Root2.6 (2.0-3.7cm) PWd0.8 (0.7-1.1cm)Aortic Cusp Exc.1.8 (1.5-2.0cm) LVDs3.6 (2.5-4.0cm) PWs1.0 cm Normal left ventricular chamber size, systolic function and wall motion. Left ventricular ejection fraction estimated to be 55 %. No evidence ofpericardial fat or effusion. All other cardiac chamber sizes are within normal limits. Mild focal aortic valve sclerosis with adequate cusp excursion. Mildly thickened mitral valve leaflets with normal excursion. Mild mitral annulus and aortic root calcification. Pulmonic valve not well visualized. Normal tricuspid valve structure. IVC dilated at 1.9 cm with physiologic collapse. A color flow and spectral Doppler study was performed and revealed: No aortic regurgitation. Mild to moderate mitral regurgitation. Mitral inflow velocities indicates normal left ventricular diastolic function. Moderate tricuspid regurgitation. Tricuspid systolic velocities suggests peak right ventricular systolic pressure of 36 mmHg, consistent with mild pulmonary hypertension. Trace pulmonic regurgitation present.
--- NOTE | 2017-04-09 23:30 | Discharge Summary 2 SIG ---
DATE OF ADMISSION: 04/05/2017 DATE OF DISCHARGE: 04/06/2017 The patient is admitted under Dr. Boudreaux. REASON FOR ADMISSION: The patient is a 66-year-old female with a history of hypertension and diabetes, presented to emergency room with a complaint of chest tightness and pressure for one day. Chest pain was radiating to her back. She denied fever or chills. No cough. No associated shortness of breath. Due to the high risk factors for acute coronary syndrome, the patient was admitted for further management. ADMITTING DIAGNOSES: Includes: 1. Chest pain, rule out acute coronary syndrome. 2. Hypertension. 3. Diabetes. HOSPITAL COURSE: The patient was admitted on telemetry floor. Serial troponin were negative. EKG revealed sinus rhythm with occasional premature ventricular complexes, otherwise normal. No acute ischemic or ST changes. Educational Resource Coordinator closely followed. Echocardiogram revealed preserved ejection fraction of 55% and right ventricular systolic pressure of 36 consistent with mild pulmonary hypertension as well as evidence of [id number] tricuspid regurgitation. Educational Resource Coordinator seen and evaluated the patient. Educational Resource Coordinator felt that the patient's chest pain is atypical and likely related to gastroesophageal reflux disease. However due to the high risk factor, the patient was scheduled for nuclear stress test. Subsequently nuclear stress test was done and it was nonischemic with a calculated ejection fracture of 63%. Blood pressure was managed with KARLI inhibitor and low dose of diuretic was added by transition coach was stable. Lipid panel revealed elevated LDL. The patient was counseled on low-fat low-cholesterol diabetic diet. The patient is already on statin. Aspirin added as per cardio recommendation. Blood sugar was managed with metformin at home. Blood sugar in the hospital was controlled. The patient was stable for discharge home. Follow up with the primary medical doctor. DISCHARGE DIAGNOSES: Includes: 1. Noncardiac chest pain likely related to gastroesophageal reflux disease. 2. Hypertension. 3. Diabetes. 4. Hyperlipidemia. 5. Gastroesophageal reflux disease. DISCHARGE MEDICATIONS: See medication reconciliation list. DISCHARGE INSTRUCTIONS: The patient is discharged home. Follow up with the primary medical doctor. Sukhjinder Boudreaux M.D. I have been assigned to dictate discharge summary on this account and I was not involved in the patient's management. Effie Flowers N.P. (vanchtein) DR: DANISH JOB#: [id number] CC:
== END 2017-04-06 17:45 | disposition home or self-care (01) | DRG 392 ==
LOC: EMR 09:12 → 2E 09:21 → EDBEDREQ 09:58 → 2E 23:19
DX: K21.0 Gastro-esophageal reflux disease with esophagitis (principal); I27.2 Other secondary pulmonary hypertension; I10 Essential (primary) hypertension; E11.9 Type 2 diabetes mellitus without complications; R07.9 Chest pain, unspecified; E78.5 Hyperlipidemia, unspecified; Z88.8 Allergy status to other drugs, medicaments and biological substances; I07.1 Rheumatic tricuspid insufficiency
CPT/HCPCS: 36415; 71010; 78452; 80053; 80061; 81003; 82550; 82553; 82962; 83690; 84484; 85025; 93005; 93017; 93306; J1815

== ENCOUNTER 2017-04-25 12:52 | Outpatient (CLI) | payer MEDICARE, OTHER ==
[2017-04-25 13:38] VITALS: BP 150/78
--- NOTE | 2017-04-25 13:43 | GI Progress Note ---
Assessment/Plan Problems: (1) Dysphagia ICD Codes: R13.10 - Dysphagia, unspecified SNOMED: 44978147, 483518706 (2) GERD (gastroesophageal reflux disease) ICD Codes: K21.9 - Gastro-esophageal reflux disease without esophagitis SNOMED: 414263594 (3) Abdominal pain ICD Codes: R10.9 - Unspecified abdominal pain SNOMED: 87207140 Status: stable Status Narrative Seen with Dr. Goode. Assessment/Plan Esophageal Xray reviewed with patient >> unremarkable Patient education on possible Tardive dyskinesia. obtain MRI records dc reglan 5 mg >> pt stop taking trial Nexium 24 Rx omeprazole 40 RTC x 1 month will consider esophageal manometry @ [facility] if no improvement. Subjective Subjective still feels liquids get "stuck" in her throat, no improvement since last time had cervical surgery 10 years ago Objective T 97.4 BP 150/82 P 85 99 RA General Appearance: no apparent distress, alert, overweight Cardiovascular: normal rate Respiratory/Chest: normal breath sounds, no respiratory distress Abdominal Exam: normal bowel sounds, non tender, soft Extremities: normal range of motion Katie Hebert N.P. Apr 25, 2017 13:43
== END 2017-04-25 13:35 | disposition home or self-care (01) ==
LOC: PAN 12:52
DX: R13.10 Dysphagia, unspecified (principal); K21.9 Gastro-esophageal reflux disease without esophagitis; R10.9 Unspecified abdominal pain
CPT/HCPCS: 99211